=== PATIENT | male | born 1960 | race Caucasian/White ===

== ENCOUNTER 2016-12-04 08:49 | Emergency (ER) | payer SELFPAY ==
[~2016-12-04] VITALS: Ht 180.3 cm; Wt 93.0 kg
[2016-12-04 09:28] VITALS: BP 130/88
== END 2016-12-04 09:36 | disposition home or self-care (01) ==
LOC: ED 08:49
DX: S01.111A Laceration without foreign body of right eyelid and periocular area, initial encounter (principal); R42 Dizziness and giddiness; X58.XXXA Exposure to other specified factors, initial encounter; Y93.89 Activity, other specified; Y99.8 Other external cause status; Y92.89 Other specified places as the place of occurrence of the external cause

== ENCOUNTER 2016-12-23 01:30 | Emergency (ER) | payer SELFPAY ==
[~2016-12-23] VITALS: Ht 180.3 cm; Wt 102.0 kg
[2016-12-23 02:56] VITALS: BP 135/68
== END 2016-12-23 02:56 | disposition home or self-care (01) ==
LOC: ED 01:30
DX: F10.129 Alcohol abuse with intoxication, unspecified (principal); I10 Essential (primary) hypertension; E11.9 Type 2 diabetes mellitus without complications; Z88.0 Allergy status to penicillin

== ENCOUNTER 2017-04-18 18:29 | Emergency (ER) | payer OTHER ==
[2017-04-18 18:31] VITALS: BP 103/56
== END 2017-04-18 18:48 | disposition home or self-care (01) ==
LOC: ED 18:29
DX: F10.129 Alcohol abuse with intoxication, unspecified (principal); I10 Essential (primary) hypertension; E11.9 Type 2 diabetes mellitus without complications; Z88.0 Allergy status to penicillin

== ENCOUNTER 2018-08-04 18:14 | Inpatient (IN) | payer SELFPAY ==
[~2018-08-04] VITALS: Ht 172.7 cm; Wt 109.8 kg
[2018-08-04 18:49] LABS: BASOPHIL % 0.5 % (0-2); PLATELET COUNT 255 x10^3mcL (130-400); RED CELL DISTRIBUTION WIDTH 13.4 % (11.5-14.5)
[2018-08-04 19:06] LABS: CALCIUM 8.7 mg/dL (8.5-10.1); CARBON DIOXIDE 25.1 mmol/L (21-32); POTASSIUM SERUM 3.5 mmol/L (3.5-5.1)
[2018-08-04 20:38] LABS: MAGNESIUM 1.7 mg/dL (1.8-2.4)
[2018-08-04 20:39] LABS: CHOLESTEROL/HDL RATIO 3.7
[2018-08-04 20:42] LABS: T3 TOTAL 1.08 ng/mL
[2018-08-04 20:46] LABS: FREE T4 1.09 ng/dL (0.76-1.46); FREE THYROXINE INDEX 2.8 ug/dL (1.4-4.5); T4(THYROXINE) 8.1 ug/dL (4.7-13.3)
[2018-08-04 23:04] VITALS: BP 128/77
[2018-08-05 03:56] LABS: microscopic required? NO
[2018-08-05 04:19] LABS: urine erythrocyte NEGATIVE (NEGATIVE)
[2018-08-05 04:29] LABS: AMPHETAMINE QUAL UR NONE DETECTED (See below)
[2018-08-05 05:42] VITALS: BP 134/77
[2018-08-05 06:05] LABS: CALCIUM 8.1 mg/dL (8.5-10.1); CARBON DIOXIDE 23.5 mmol/L (21-32); CHLORIDE SERUM 106 mmol/L (98-107); CREATININE SERUM 1.3 mg/dL (0.7-1.3); GFR1 > 60 mL/min; GLUCOSE SERUM 99 mg/dL (74-106); POTASSIUM SERUM 3.2 mmol/L (3.5-5.1); SODIUM SERUM 142 mmol/L (136-145)
[2018-08-05 06:06] LABS: BASOPHIL % 0.3 % (0-2); PLATELET COUNT 227 x10^3mcL (130-400); RED CELL DISTRIBUTION WIDTH 13.1 % (11.5-14.5)
[2018-08-05 08:06] VITALS: BP 148/81
[2018-08-05 13:10] VITALS: BP 161/79
[2018-08-05 13:26] VITALS: BP 161/79
[2018-08-05 14:33] VITALS: BP 142/83
[2018-08-05 14:47] VITALS: Ht 172.7 cm; Wt 109.8 kg
== END 2018-08-05 15:25 | disposition home or self-care (01) | DRG 91 ==
LOC: ED 18:14 → MU 19:50 → DU 08-05 12:09
PROVIDERS: Emergency Medicine; Internal Medicine
DX: G92 Toxic encephalopathy (principal); J18.9 Pneumonia, unspecified organism; F10.129 Alcohol abuse with intoxication, unspecified; Y90.9 Presence of alcohol in blood, level not specified; I10 Essential (primary) hypertension; E11.9 Type 2 diabetes mellitus without complications; G89.29 Other chronic pain; M54.9 Dorsalgia, unspecified; Z88.0 Allergy status to penicillin; W18.39XA Other fall on same level, initial encounter; Y93.89 Activity, other specified; Y92.89 Other specified places as the place of occurrence of the external cause; Y99.8 Other external cause status; E78.1 Pure hyperglyceridemia; E83.42 Hypomagnesemia; S01.21XA Laceration without foreign body of nose, initial encounter; S01.411A Laceration without foreign body of right cheek and temporomandibular area, initial encounter
CPT/HCPCS: 82962; 83880; 84439; G0480; J1630; J1956; J2310; J3010; J3480; J3490; J7030; Q0092